=== PATIENT | male | born 1980 | race Caucasian/White ===

== ENCOUNTER 2025-08-12 20:41 | Emergency (ER) | payer SELFPAY ==
[2025-08-12 20:44] VITALS: BP 174/114
--- NOTE | 2025-08-12 21:32 | ED.GENMED ---
History of Present Illness
General
Chief Complaint: Musculo-Skeletal Complaint
Source: patient
Exam Limitations: none
Time Seen by Provider: 08/12/25 21:16
History of Present Illness
History of Present Illness:
45yo right hand dominant male presenting for evaluation of a right middle finger injury that was sustained about an hour ago. 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
finger. He presents with an obvious deformity to the PIP joint.
Past History
Past History
ED Past Surgical History: None
Social History
Personal:
Living: with family
Employment: Employed
Phy Exam
General Physical Exam
General Presentation: well appearing and no apparent distress
General Skin: warm and dry
General Habitus: normal
General Mental: alert
ENT Exam
ENT Exam: normocephalic
Pulmonary Exam
Pulmonary Exam: no respiratory distress
Musculoskeletal Exam
Musculoskeletal Exam: other (R middle finger: PIP joint deformity noted with tenderness. Skin intact. Sensation and cap refill intact at distal fingertip.)
Skin Exam
Skin Exam: normal color and warm/dry
Psychiatric Exam
Psychiatric Exam: normal mood/affect
Course
Orders/Labs/Results
Orders:
Orders
08/12/25 20:47
CR Finger(s)/thumb Min 2 Vw Rt Urgent
Comment:
Reason For Exam: injury, visible deformity
Indicate Which Finger:: Middle Finger
08/12/25 21:31
Aluminium Finger Splint Right ONCE
CR Finger(s)/thumb Min 2 Vw Rt Urgent
Comment:
Reason For Exam: s/p reduction of R middle finger
08/12/25 22:03
CR Finger(s)/thumb Min 2 Vw Rt Urgent
Comment:
Reason For Exam: s/p reduction
Vital Signs
Initial and Last Documented VS:
Initial Vital Signs
Temp Pulse Resp BP Pulse Ox
98.5 F 124 18 174/114 98
08/12/25 20:44 08/12/25 20:44 08/12/25 20:44 08/12/25 20:44 08/12/25 20:44
Last Documented Vital Signs
Temp Pulse Resp BP Pulse Ox
98.6 F 95 16 151/91 97
08/12/25 22:34 08/12/25 22:34 08/12/25 22:34 08/12/25 22:38 08/12/25 22:34
Procedures
Joint/Fracture Reduction
Right Proximal Third Finger:
Indication for procedure:: Dislocation
Procedure completed by: Serina Burgess PA-C
Anesthesia/sedation: 1% Lidocaine and Regional block
Injury was: closed
Further treatement: needs further treatment
Post reduction exam: stable
Capillary Refill: normal
Normal distal neurovascular exam?: Yes
MDM/Problems Addressed
Differential Diagnosis Includes:
45yoM here with a R middle finger injury after this finger got caught on a leash. Obvious deformity to right PIP joint noted. Digit is neurovascularly intact. Differential diagnosis includes: Dislocation vs. fracture
X-rays obtained which confirms dislocation. Digital block performed and joint reduced with manual traction. Repeat x-rays show persistent dislocation. Repeat reduction performed and repeat x-rays now show appropriate reduction. Possible chip
fracture noted. He was placed in a static finger splint and advised to f/u with hand surgery.
*Pulse Oximetry
SaO2: 98
Oxygen Mode of Delivery: Room air
Patient hypoxic: no (98%)
*Critical Care Note
Total Time (30-74mins, 75-104mins- exclusive of procedures): Not Applicable
ED Attending Note
-
Portions of this chart may have been created with voice recognition software.� Occasional wrong word or��sound alike� substitutions may have occurred due to the inherent limitations of voice recognition software.
Discharge Plan
Departure
Patient Disposition: Home (Routine Discharge)
Date of Disposition: 08/12/25
Time of Disposition: 22:26
Patient with high blood pressure during this ER visit?: Yes
Discharge Problem:
Dislocation of right middle finger
Instructions: Finger Dislocation ED
Prescriptions:
No Action
oxycodone-acetaminophen 5 MG/325 MG tablet
1 tab PO Q4HPRN PRN (Reason: pain) Qty: 10 0RF
Rx Instructions:
Use as needed
Referrals:
Rich Churchill MD [Active, Orthopedics]
UNKNOWN - PT DOES,NOT KNOW [Family Provider]
Activity Restrictions/Additional Instructions:
Wear finger splint for immobilization. Take Tylenol and ibuprofen for pain. Apply ice to help with swelling.
Please call tomorrow to schedule a follow-up with orthopedics.
Interventions
Interventions:
*Risk Screen - Suicide Last Done: 08/12/25 20:44
*General Assessment Last Done: 08/12/25 22:38
*Neglect/Abuse Screening Last Done: 08/12/25 22:38
*ED- Fall Risk Assessment Last Done: 08/12/25 22:38
*ED COVID-19 Vaccine History Last Done: 08/12/25 22:38
*Nursing Disposition Last Done: 08/12/25 22:40
ED-Musculoskeletal Assessment Last Done: 08/12/25 22:36
Discharge Date and Time
Discharge Date/Time: 08/12/25 22:41
Print Language: MONEGASQUE
[2025-08-12 22:34] VITALS: BP 156/107
[2025-08-12 22:38] VITALS: BP 151/91
== END 2025-08-12 22:41 | disposition home or self-care (01) ==
LOC: EMR 20:41
PROVIDERS: EMERGENCY PHYSICIAN Emergency Medicine
DX: S63.282A Dislocation of proximal interphalangeal joint of right middle finger, initial encounter (principal); W23.1XXA Caught, crushed, jammed, or pinched between stationary objects, initial encounter; Y92.810 Car as the place of occurrence of the external cause; Y99.0 Civilian activity done for income or pay
CPT/HCPCS: 99283; 26770; 73140